=== PATIENT | female | born 1955 | race Caucasian/White ===

== ENCOUNTER 2025-03-01 21:23 | Emergency (ER) | payer OTHER, SELFPAY ==
[2025-03-01 21:29] VITALS: BP 161/85
--- NOTE | 2025-03-01 23:35 | ED.SKININJ ---
HPI-Injury
General
Chief Complaint: Bite
Source: patient and family
Exam Limitations: none
Time Seen by Provider: 03/01/25 22:20
Nursing documentation reviewed up to this point in time: agreed with
History of Present Illness-Injury
Is this injury a work related problem?: No
Is pt an associate of [facility]?: No
Initial Injury comments:
69-year-old female presenting to the emergency department today with concerns of getting bit by a dog to her right hand. She claims that she was walking her dog when another dog that her neighbor was walking bit her in the hand after the dogs
interacted with each other. She claims that she has seen the dog many times in the past but does not know the dog or funeral director/embalmer/owner personally. She believes that the dog is usually somewhat aggressive at baseline. She is unsure when her last tetanus shot
was. She denies any numbness weakness or additional concerns
Review of Systems
Review of Systems
Allergies reviewed?: Yes
All Other Systems: ROS reviewed and negative except as documented in HPI and ROS
Phy Exam
Physical Exam
Physical Exam:
GENERAL: Alert , in no apparent distress
EYE: pupils equal and reactive
NECK: Supple, no significant adenopathy.
ENT: o/p clr, mmm.
CARDIAC: Regular rate and rhythm .
LUNGS: Clear breath sounds bilaterally, no acute respiratory distress, no wheezes/rales/rhonchi
ABDOMEN: Soft, without focal tenderness, no r/g, no cvat
NEUROLOGICAL: Alert and oriented, no focal neuro deficits
SKIN: Palm of the right hand with a 2 mm in size wound that scabbed over no active bleeding very minimal tenderness to the area otherwise normal hand examination normal strength range of motion. Warm and dry, skin intact.
MUSCULOSKELETAL: No edema, well perfused.
PSYCH: Normal and appropriate interaction.
Course
Orders/Labs/Results
Orders:
Orders
03/01/25 23:34
Amoxicillin 875 mg/Clav 125 mg [Augmentin 875 mg/125 mg] 1 tablet PO NOW STA
Tetanus/Diphth/Acelpertussis [Adacel] 0.5 ml IM .ONCE ONE
Vital Signs
Initial and Last Documented VS:
Initial Vital Signs
Temp Pulse Resp BP Pulse Ox
98.2 F 100 18 161/85 97
03/01/25 21:29 03/01/25 21:29 03/01/25 21:29 03/01/25 21:29 03/01/25 21:29
Last Documented Vital Signs
Temp Pulse Resp BP Pulse Ox
98.2 F 100 18 161/85 97
03/01/25 21:03/01/25 21:03/01/25 21:03/01/25 21:29 03/01/25 23:35
MDM/Problems Addressed
MDM/Problems Addressed:
69-year-old female presenting with concerns of a very small dog bite to the right hand. She claims that she is seeing this dog many times but does not know the funeral director/embalmer/owner specifically. She did not get any information on the dog bit. In this
circumstance it was recommended to get a rabies vaccination. It was explained to her as well as her daughter and son-in-law. They discussed this between themselves and elected to not go forward with getting the rabies vaccination. It was then
again explained that this is recommended in the circumstance considering unable to follow-up with the dog specifically. The life-threatening nature of rabies was thoroughly explained. They demonstrated understanding. They did agree to get a
tetanus shot as well as get treated with Augmentin. The wound was irrigated thoroughly here for over a minute. They were advised to keep the area clean covered and given strict return precautions.
*Pulse Oximetry
SaO2: 97
Oxygen Mode of Delivery: Room air
Patient hypoxic: no (97)
*Critical Care Note
Total Time (30-74mins, 75-104mins- exclusive of procedures): Not Applicable
ED Attending Note
-
Portions of this chart may have been created with voice recognition software.� Occasional wrong word or��sound alike� substitutions may have occurred due to the inherent limitations of voice recognition software.
Discharge Plan
Departure
Patient Disposition: Home (Routine Discharge)
Date of Disposition: 03/01/25
Time of Disposition: 23:35
Patient with high blood pressure during this ER visit?: No
Condition: Good
Covid-19: Not Applicable
Discharge Problem:
Dog bite
Instructions: Animal Bites (DC)
Prescriptions:
New
amoxicillin-pot clavulanate 875-125 mg tablet
1 tab PO BID 3 Days Qty: 6 0RF
Referrals:
Jeancarlos Carmona MD [Family Provider, Internal Medicine]
Activity Restrictions/Additional Instructions:
You came to the emergency department today with concerns of a dog bite. Please keep the area clean covered and take the Augmentin twice daily for the next 3 days to reduce risk of infection. Return for any worsening, new or concerning symptoms.
If there was any concerning features of the dog in question please immediately return for rabies prophylaxis.
Interventions
Interventions:
*Risk Screen - Suicide Last Done: 03/01/25 21:29
*General Assessment Last Done: 03/01/25 21:29
*Neglect/Abuse Screening Last Done: 03/01/25 21:29
*ED- Fall Risk Assessment Last Done: 03/01/25 23:48
*ED COVID-19 Vaccine History Last Done: 03/01/25 21:29
*Nursing Disposition Last Done: 03/01/25 23:48
ED-Skin Assessment Last Done: 03/01/25 23:47
Discharge Date and Time
Discharge Date/Time: 03/01/25 23:49
Print Language: AMHARIC
[2025-03-01] MEDS: AUGMENTIN 875 MG/125 MG 1 TABLET PO (23:40)
[2025-03-01] MEDS: ADACEL 0.5 ML IM (23:40)
== END 2025-03-01 23:49 | disposition home or self-care (01) ==
LOC: EMR 21:23
PROVIDERS: EMERGENCY PHYSICIAN Student in an Organized Health Care Education/Training Program; FAMILY PHYSICIAN Internal Medicine
DX: S61.451A Open bite of right hand, initial encounter (principal); W54.0XXA Bitten by dog, initial encounter; Z23 Encounter for immunization
CPT/HCPCS: 99282; 90471; 90715